=== PATIENT | female | born 1990 | race Hispanic/Latino ===

== ENCOUNTER 2024-02-22 09:19 | Emergency (ER) | payer OTHER, SELFPAY ==
[2024-02-22 09:36] VITALS: BP 126/80
--- NOTE | 2024-02-22 11:44 | ED.GENMED ---
History of Present Illness
General
Chief Complaint: Musculo-Skeletal Complaint
Time Seen by Provider: 02/22/24 11:35
Travel History
Have you had any contact with someone who has COVID-19?: No
Do you have any symptoms of coronavirus? Fever > 100 degrees, chills, cough, shortness of breath, sore throat, loss of taste or smell, muscle aches, or headache?: No
History of Present Illness
History of Present Illness:
33yoF hx DM, migraines, HTN, kidney stones presenting with right flank pain starting last night. Patient denies any chest pain, shortness of breath, numbness, weakness, tingling, dysuria, hematuria, nausea, vomiting, or abdominal pain. Patient
denies any recent heavy lifting or falls. Patient reports history of kidney stones but states this feels different.
Past History
Past History
ED Past Medical History: HTN, NIDDM and Other (Migraines, )
ED Past Surgical History: (X 2)
Social History
Tobacco: Former smoker
Alcohol: Occasional
Drug: None
Personal: Single
Living: with family
Employment: Employed
Phy Exam
Physical Exam
Physical Exam:
General: Alert, no acute distress
Head: NCAT
Eyes: clear conjunctiva
Neck: supple
Cardiac: regular rate and rhythm, no murmur
Lungs: clear to auscultation bilaterally. No wheezes, rales, or rhonchi. Speaking full unlabored sentences. No respiratory distress.
Abdomen: soft, nondistended nontender. No rebound or guarding. Right CVA tenderness to palpation. No left CVA tenderness
MSK: no lower extremity edema bilaterally. No deformity. No midline thoracic/lumbar tenderness to palpation.
Skin: warm, dry
Neuro: Alert and oriented x3. no focal deficits. 5/5 strength bilateral lower extremities. no saddle paraesthesias, sensation intact throughout
Scores
PERC Rule Criteria
Age <50 years: Yes
HR <100 bpm: Yes
Room air oxygen sat >94%: Yes
History of DVT or PE: No
Recent trauma or surgery: No
Hemoptysis: No
Exogenous estrogen: No
Clinical signs suggestive of DVT: No
: No
Considered low risk for PE: Yes
PERC Score: 0
PE can be excluded by PERC: Yes
Course
Orders/Labs/Results
Orders:
Orders
02/22/24 11:43
CT Abd/pelvis Wo Iv Cont Urgent
Comment:
Reason For Exam: right flank pain
Ketorolac [Toradol] 15 mg IV NOW STA
Ondansetron Injectable [Zofran] 4 mg IV NOW STA
02/22/24 11:44
0.9% Sodium Chloride 1000 ml [Nss] 1,000 ml IV BOLUS
Test Result ONCE
02/22/24 11:49
CBC/With Diff [Complete Blood Count/With Diff] Urgent
CMP [Comprehensive Metabolic Panel] Urgent
, Urine Qualitative Screen [HCG, Urine Qualitative Screen] Urgent
Date Specimen was Collected: 02/22/24
Time Specimen was Collected: 11:47
UA Reflex to Culture [Urinalysis Reflex To Culture] Urgent
Date Specimen was Collected: 02/22/24
Time Specimen was Collected: 11:47
Abnormal Lab Results
02/22/24
11:49
RBC 4.19 L 10^6/uL
(4.20-5.40)
Hct 36.5 L %
(37.0-47.0)
Absolute Monos (auto) 0.7 H 10^3/uL
(0.1-0.6)
Monocytes % 11.0 H %
(1.7-9.3)
Glucose 101 H mg/dl
(70-99)
02/22/24 11:49
02/22/24 11:49
Vital Signs
Initial and Last Documented VS:
Initial Vital Signs
Temp Pulse Resp BP Pulse Ox
98.1 F 69 16 126/80 100
02/22/24 09:36 02/22/24 09:36 02/22/24 09:36 02/22/24 09:36 02/22/24 09:36
Last Documented Vital Signs
Temp Pulse Resp BP Pulse Ox
98.1 F 69 16 126/80 100
02/22/24 09:36 02/22/24 09:36 02/22/24 09:36 02/22/24 09:36 02/22/24 09:36
MDM/Problems Addressed
MDM/Problems Addressed:
Patient presents to the Emergency Department with ___right flank pain
Number and Complexity of Problems Addressed at the Encounter
� Chronic conditions affecting care:
� Acute Exacerbation and/or Progression of Chronic Illness:
� Differential Diagnosis includes: kidney stone, pyelonephritis, muscular strain
Amount and/or Complexity of Data to be Reviewed and Analyzed
� I performed an independent evaluation of and my interpretation is:
EKG:
CT:
Xrays:
Laboratory Studies: labs unremarkable. UA shows no blood, negative for UTI
Other:
� Review of other/old records reveals:
� Clinical information was obtained by an independent historian:
� Prescriptions/Medications Considered but not given:
� Further testing considered but not performed:
Risk of Complications and/or Morbidity or Mortality of Patient Management
� Social Determinants of health affecting care:
� Discussion with other providers (PCP, Hospitalists, Consultants, etc):
� Escalation of care including admission/observation vs risk of discharge considered: 33yoF presenting with right flank pain for the past 1 day. No dysuria, hematuria, chest pain, shortness of breath, nausea, vomiting, abdominal pain, numbness,
weakness, or tingling. Right CVA tenderness to palpation on exam, otherwise neurologically intact, no midline thoracic/lumbar tenderness to palpation. Labs unremarkable, UA negative for blood/UTI. CT abdomen/pelvis shows no stones, normal kidney, no
significant osseus abnormalities. PERC negative, low suspicion for PE. Discussed results with patient at bedside. Suspect muscular strain. On reevaluation, patient reports improvement in symptoms with toradol. Advised to continue tylenol/motrin as
needed, PCP follow up. Patient expresed verbal understanding.
*Critical Care Note
Total Time (30-74mins, 75-104mins- exclusive of procedures): Not Applicable
ED Attending Note
-
Portions of this chart may have been created with voice recognition software.� Occasional wrong word or��sound alike� substitutions may have occurred due to the inherent limitations of voice recognition software.
Discharge Plan
Departure
Patient Disposition: Home (Routine Discharge)
Date of Disposition: 02/22/24
Time of Disposition: 13:39
Patient with high blood pressure during this ER visit?: No
Discharge Problem:
Acute right flank pain
Prescriptions:
No Action
benzonatate 100 MG capsule
100 mg PO TID PRN (Reason: cough) Qty: 21 0RF
albuterol sulfate 1 PUFF HFA aerosol inhaler
1 puff inhalation QID Qty: 1 0RF
meclizine 25 MG tablet
25 mg PO TID PRN (Reason: vertigo) Qty: 12 0RF
Robitussin Cough-Sore Throat 325-10 mg/10 mL liquid
20 ml PO Q4H PRN (Reason: cold symptoms) Qty: 500 0RF
Referrals:
Leila Jackson CRNP [Family Provider] -
Activity Restrictions/Additional Instructions:
Take Tylenol 975mg every 6 hours and/or ibuprofen 800mg every 8 hours with food as needed for pain
Purchase lidocaine patch over the counter at pharmacy, apply to area of most pain
Follow up with primary care doctor in 1-2 days
Return to the emergency department for shortness of breath, chest pain, numbness, weakness, tingling or new/worsening symptoms
Interventions
Interventions:
*Risk Screen - Suicide Last Done: 02/22/24 13:59
*General Assessment Last Done: 02/22/24 13:59
*Neglect/Abuse Screening Last Done: 02/22/24 13:59
ED- Fall Risk Assessment Last Done: 02/22/24 13:59
*ED COVID-19 Vaccine History Last Done: 02/22/24 09:40
*Nursing Disposition Last Done: 02/22/24 13:59
ED-Musculoskeletal Assessment Last Done: 02/22/24 13:58
Discharge Date and Time
Discharge Date/Time: 02/22/24 14:00
Print Language: UPPER SORBIAN
[2024-02-22] MEDS: NSS 1000 IV (11:57)
[2024-02-22] MEDS: TORADOL 15 MG IV (12:00)
[2024-02-22 12:01] LABS: Urine Albumin Negative (Neg - Trace); Urine Bilirubin Negative (Negative); Urine Character Clear (Clear); Urine Color Yellow; Urine Glucose Negative (Negative); Urine Ketone Negative (Negative); Urine Leukocyte Negative (Negative); Urine Nitrite Negative (Negative); Urine Occult Blood Negative (Negative); Urine Urobilinogen Negative (Neg - 1+)
[2024-02-22] MEDS: ZOFRAN 4 MG IV (12:01)
[2024-02-22 12:05] LABS: HCG, Urine Qualitative Screen Negative
[2024-02-22 12:09] LABS: % Basophils 0.5 % (0-2); % Eosinophils 2.6 % (0-6); % Immature Granulocytes 0.2 % (0-0.5); % Lymphocytes 41.9 % (20.5-51.1); % Neutrophils 43.8 % (42.2-75.2); Absolute Eosinophils 0.2 10^3/uL (0-0.7); Absolute Lymphocytes 2.6 10^3/uL (1.2-3.4); Absolute Monocytes 0.7 10^3/uL (0.1-0.6); Absolute Neutrophils 2.7 10^3/uL (1.4-6.5); Hematocrit 36.5 % (37.0-47.0); Hemoglobin 12.1 g/dL (12.0-16.0); Mean Corp Hgb Conc. 33.2 g/dL (33.0-37.0); Mean Corpuscular Hgb 28.9 pg (27.0-31.0); Mean Corpuscular Volume 87.1 fL (81.0-99.0); Mean Platelet Volume 9.5 fL (7.4-10.4); Nucleated Red Blood Cells % 0 %; Platelet Count 349 10^3/uL (130-400); Red Blood Cell Count 4.19 10^6/uL (4.20-5.40); Red Cell Dist. Width 13.1 % (11.5-14.5); White Blood Cell Count 6.1 10^3/uL (4.8-10.8)
[2024-02-22 12:22] LABS: ALT (SGPT) 19 U/L (0-35); AST (SGOT) 24 U/L (14-36); Albumin 4.4 g/dl (3.5-5.0); Alkaline Phosphatase 52 U/L (38-126); Blood Urea Nitrogen 11 mg/dl (7-17); Calcium 9.4 mg/dl (8.4-10.2); Carbon Dioxide 25 mmol/L (22-30); Chloride 107 mmol/L (98-107); Glucose 101 mg/dl (70-99); Potassium 4.1 mmol/L (3.5-5.1); Sodium 140 mmol/L (135-145); Total Protein 7.7 g/dl (6.3-8.2); eGFR > 60.00
[2024-02-22 12:51] LABS: Total Bilirubin 0.5 mg/dl (0.2-1.3)
== END 2024-02-22 14:00 | disposition home or self-care (01) ==
LOC: EMR 09:19
PROVIDERS: EMERGENCY PHYSICIAN Emergency Medicine; FAMILY PHYSICIAN Nurse Practitioner Family
DX: R10.9 Unspecified abdominal pain (principal); E11.9 Type 2 diabetes mellitus without complications; G43.909 Migraine, unspecified, not intractable, without status migrainosus; I10 Essential (primary) hypertension; Z87.442 Personal history of urinary calculi; Z87.891 Personal history of nicotine dependence
CPT/HCPCS: 99284; 96374; 96375; 96361; 74176; 80053; 81003; 81025; 85025